=== PATIENT | male | born 1970 | race Caucasian/White ===

== ENCOUNTER → 2017-01-24 | Outpatient (CLI) | payer BC ==
[~2017-01-24] MED LIST: CIPRO 500MG TA500 MG PO; CRESTOR10 MG PO; FLAGYL500 MG PO; INDERAL 20MG. T20 MG PO; KEFLEX 500MG.500 MG PO; LEVOTHROID0.1 MG PO; LEVOTHROID0.125 MG NG; LOMOTIL 2.5MG.2.5 MG PO; LORTAB 500 MG-11 TAB PO; TESSALON PERLE100 MG PO; VICODIN 5/500 T1 TAB PO; VICODIN 7.5/501 EACH PO; ZITHROMAX Z PA250 MG PO
[2017-01-24 11:42] LABS: HEMOGLOBIN 13.7 g/dL (14.1-18.0); LYMPH # 1.2 K/mm3 (0.7-4.5); LYMPH % 35.1 % (10-50)
[2017-01-24 14:59] LABS: BUN 14 mg/dL (7-18)
[2017-01-24 15:00] LABS: GFR (ESTIMATED) 121 ML/MIN (>60)
== END ==
LOC: LAB 10:55
PROVIDERS: Internal Medicine
DX: E78.5 Hyperlipidemia, unspecified (principal); K57.30 Diverticulosis of large intestine without perforation or abscess without bleeding; K75.81 Nonalcoholic steatohepatitis (NASH); K74.60 Unspecified cirrhosis of liver; E03.9 Hypothyroidism, unspecified

== ENCOUNTER → 2017-07-29 | Outpatient (CLI) | payer BC ==
[2017-07-29 10:55] LABS: HEMOGLOBIN 11.8 g/dL (14.1-18.0)
[2017-07-29 11:00] LABS: LYMPH % 25.2 % (10-50)
[2017-07-29 11:01] LABS: LYMPH # 1.1 K/mm3 (0.7-4.5)
[2017-07-29 11:05] LABS: BUN 9 mg/dL (7-18); GFR (ESTIMATED) 90 ML/MIN (>60)
== END ==
LOC: LAB 10:26
PROVIDERS: Internal Medicine
DX: R06.02 Shortness of breath (principal); E87.70 Fluid overload, unspecified

== ENCOUNTER → 2017-10-02 | Outpatient (CLI) | payer OTHER, BC ==
--- NOTE | 2017-10-02 15:01 | RADIOLOGY REPORT PS360 ---
US RUQ-(ABD LTD)1ORGAN/QUAD/FU HISTORY: CIRRHOSIS OF LIVER ORDERING PHYSICIAN: Devante Fisher MD PATIENT AGE: 47 years COMPARISON: 07/01/2017 FINDINGS: PANCREAS:Poorly demonstrated LIVER:Shrunken cirrhotic appearing liver with heterogeneous echogenicity and surrounding ascites. Portal vein is slightly prominent measuring 16 mm. These images are somewhat limited. No obvious blood flow detected within portal vein. There may be some collateral vessels around the portal vein. RIGHT KIDNEY:Unremarkable. Normal size and echogenicity. No hydronephrosis GALLBLADDER:Mildly distended gallbladder with gallstones. No biliary dilatation or pericholecystic fluid or wall thickening. IMPRESSION: 1. Cirrhosis with ascites. 2. Difficulty in evaluation of the portal area. No definite flow within the portal vein which could be due to very slow flow or portal vein thrombosis. Collateral vessels are suspected in the periportal region. Consider CT of the abdomen pelvis with contrast with three-phase imaging for further evaluation 3. Cholelithiasis
== END ==
LOC: RAD 08:53
DX: K74.60 Unspecified cirrhosis of liver (principal)